=== PATIENT | female | born 1950 | race Caucasian/White ===

== ENCOUNTER → 2017-05-09 | Outpatient (CLI) | payer MEDICARE ==
--- NOTE | 2017-05-09 14:47 | MM ---
Reason for exam: additional evaluation requested from prior study. Last mammogram was performed 1 year ago. History: Patient is postmenopausal, has history of breast cancer at age 65, and history of other cancer. Malignant MG pre op needle loc LT of the left breast, May 28, 2016. Lumpectomy of the left breast, May 28, 2016. Malignant US biopsy breast VAD LT of the left breast, May 21, 2016. Taking estrogen for 15 years. Physical Findings: Nurse Summary: 0.5cm nodule in the right breast at 5 o'clock (nurse celso). MG 3D Diag Mammo W/Cad PAMELA Bilateral CC and MLO view(s) were taken. Prior study comparison: May 21, 2016, left breast MG diagnostic mammo LT wo CAD. May 11, 2016, left breast MG 3d work up w/cad LT. The breast tissue is heterogeneously dense. This may lower the sensitivity of mammography. Finding #1: Architectural distortion in the posterior position of the left breast consistent with known lumpectomy. Finding #2: There are dystrophic calcifications in the left breast at lumpectomy. These results were verbally communicated with the patient and result sheet given to the patient on 05/09/17. ASSESSMENT: Incomplete: need additional imaging evaluation, BI-RAD 0 RECOMMENDATION: Ultrasound of the right breast. (palpable by nurse)
--- NOTE | 2017-05-09 14:48 | USB ---
Reason for exam: additional evaluation requested from abnormal screening. History: Patient is postmenopausal, has history of breast cancer at age 65, and history of other cancer. Malignant MG pre op needle loc LT of the left breast, May 28, 2016. Lumpectomy of the left breast, May 28, 2016. Malignant US biopsy breast VAD LT of the left breast, May 21, 2016. Taking estrogen for 15 years. US Breast Limited RT Right breast ultrasound includes all four quadrants, the retroareolar region and axilla. Finding demonstrates no cystic or solid lesion seen. These results were verbally communicated with the patient and result sheet given to the patient on 05/09/17. ASSESSMENT: Negative, BI-RAD 1 RECOMMENDATION: Follow-up diagnostic mammogram of both breasts in 1 year.
== END | disposition home or self-care (01) ==
LOC: RADMAMWWP 12:46
PROVIDERS: ATTEND Internal Medicine Hematology & Oncology
DX: Z08 Encounter for follow-up examination after completed treatment for malignant neoplasm (principal); R92.8 Other abnormal and inconclusive findings on diagnostic imaging of breast; Z85.3 Personal history of malignant neoplasm of breast
CPT/HCPCS: 76642; G0204; G0279

== ENCOUNTER → 2017-05-10 | Outpatient (CLI) | payer MEDICARE ==
--- NOTE | 2017-05-10 09:29 | XR ---
EXAMINATION TYPE: XR chest 2V DATE OF EXAM: 05/10/2017 COMPARISON: NONE INDICATION: Carcinoma upper outer quadrant left breast TECHNIQUE: Frontal and lateral views of the chest are obtained. FINDINGS: The heart size is normal. The pulmonary vasculature is normal. The lungs are clear. Postsurgical clips are within the left breast. IMPRESSION: 1. No acute pulmonary process.
== END | disposition home or self-care (01) ==
LOC: RADXRMAIN 09:07
PROVIDERS: ATTEND Internal Medicine Hematology & Oncology
DX: C50.412 Malignant neoplasm of upper-outer quadrant of left female breast (principal); I10 Essential (primary) hypertension; K12.31 Oral mucositis (ulcerative) due to antineoplastic therapy; M12.9 Arthropathy, unspecified
CPT/HCPCS: 71020

== ENCOUNTER → 2018-06-02 | Outpatient (CLI) | payer MEDICARE ==
--- NOTE | 2018-06-02 09:54 | XR ---
EXAMINATION TYPE: XR chest 2V DATE OF EXAM: 06/02/2018 COMPARISON: 05/10/2017 HISTORY: Breast cancer. Follow-up exam. TECHNIQUE: Frontal and lateral views of the chest are obtained. FINDINGS: There is a vague nodular density in the left upper lung measuring approximately 1.1 cm. The re is no focal air space opacity, pleural effusion, or pneumothorax seen. The cardiac silhouette siz e is within normal limits. There is an S-shaped scoliotic curvature of the visualized thoracolumbar s pine and mild multilevel degenerative changes. The osseous structures are intact. Postsurgical christina ges of the left breast are noted. IMPRESSION: Vague left upper lung rounded density. CT thorax is recommended to evaluate for underlyi ng pulmonary nodule.
== END ==
LOC: RADXRMAIN 09:26
PROVIDERS: ATTEND Internal Medicine Hematology & Oncology
DX: C50.412 Malignant neoplasm of upper-outer quadrant of left female breast (principal); R91.8 Other nonspecific abnormal finding of lung field
CPT/HCPCS: 71046

== ENCOUNTER → 2018-06-02 | Outpatient (CLI) | payer MEDICARE ==
--- NOTE | 2018-06-02 09:38 | MM ---
Reason for exam: additional evaluation requested from prior study. Last mammogram was performed 1 year and 1 month ago. History: Patient is postmenopausal, has history of breast cancer at age 65, and history of other cancer. Malignant MG pre op needle loc LT of the left breast, May 28, 2016. Lumpectomy of the left breast, May 28, 2016. Malignant US biopsy breast VAD LT of the left breast, May 21, 2016. Taking estrogen for 15 years. Physical Findings: Nurse did not find any significant physical abnormalities on exam. MG 3D Diag Mammo W/Cad PAMELA Bilateral CC and MLO view(s) were taken. Prior study comparison: May 09, 2017, bilateral MG 3d diag mammo w/cad PAMELA. May 21, 2016, left breast MG diagnostic mammo LT wo CAD. The breast tissue is heterogeneously dense. This may lower the sensitivity of mammography. No suspicious abnormality. Post therpy change on the left. These results were verbally communicated with the patient and result sheet given to the patient on 06/02/18. ASSESSMENT: Benign, BI-RAD 2 RECOMMENDATION: Follow-up diagnostic mammogram of both breasts in 1 year.
== END | disposition home or self-care (01) ==
LOC: RADMAMWWP 08:46
PROVIDERS: ATTEND Surgery
DX: Z08 Encounter for follow-up examination after completed treatment for malignant neoplasm (principal); Z85.3 Personal history of malignant neoplasm of breast
CPT/HCPCS: 77066; G0279; 77062

== ENCOUNTER → 2018-06-03 | Outpatient (CLI) | payer MEDICARE ==
--- NOTE | 2018-06-03 11:07 | CT ---
EXAMINATION TYPE: CT chest w con DATE OF EXAM: 06/03/2018 COMPARISON: Chest x-ray 1018 HISTORY: pain CT DLP: 174.1 mGycm Automated exposure control for dose reduction was used. CONTRAST: CT scan of the chest is performed with IV Contrast, patient injected with 100 mL of Isovue 300. FINDINGS: LUNGS: No nodule likely corresponds to the x-ray abnormality. However, there are multiple less than 5 mm pulmonary nodules. 3 mm nodule left lower lobe. 4 mm left lower lobe pleural-based image 35 5 mm nodule right middle lobe image 33 Subpleural 2 mm nodule right upper lobe 2 mm subpleural nodule left lung apex MEDIASTINUM: There are no greater than 1 cm hilar or mediastinal lymph nodes. No pericardial effusi on is seen. OTHER: Gallstone noted. Hypertrophic changes of the vertebral column. Postsurgical change involving the left breast IMPRESSION: 1. There is no nodule that corresponds to the x-ray abnormality. However there are multiple 5 mm or l ess bilateral pulmonary nodules which are too small to characterize. Recommend a follow-up 3-6 month exam to assess for stability.. 2. Cholelithiasis 3. Postoperative change involving the left breast
== END ==
LOC: RADCTMAIN 09:18
PROVIDERS: ATTEND Internal Medicine Hematology & Oncology
DX: C50.412 Malignant neoplasm of upper-outer quadrant of left female breast (principal); R91.8 Other nonspecific abnormal finding of lung field; Z98.890 Other specified postprocedural states; Z91.040 Latex allergy status; Z88.8 Allergy status to other drugs, medicaments and biological substances
CPT/HCPCS: 82565; 84520; 71260; Q9967

== ENCOUNTER → 2018-09-01 | Outpatient (CLI) | payer MEDICARE ==
--- NOTE | 2018-09-01 11:44 | CT ---
EXAMINATION TYPE: CT chest w con DATE OF EXAM: 09/01/2018 COMPARISON: Prior CT chest 06/03/2018 HISTORY: breast Ca CT DLP: 296 mGycm Automated exposure control for dose reduction was used. CONTRAST: CT scan of the chest is performed with IV Contrast, patient injected with 80 mL of Isovue 300. FINDINGS: LUNGS: The lungs are stable, there is no significant change in the subpleural nodules identified. T here is no pleural effusion or pneumothorax seen. The tracheobronchial tree is patent. MEDIASTINUM: There are no greater than 1 cm hilar or mediastinal lymph nodes. No pericardial effusi on is seen. AORTA: No additional significant abnormality is seen. OTHER: Postop changes are again noted to the left breast and axilla are similar to prior exam. Indet erminate subcentimeter hypodensities again noted within the liver. There is small calculus in the dep endent portion of the gallbladder as on prior. IMPRESSION: Stable exam.
== END | disposition home or self-care (01) ==
LOC: RADCTMAIN 10:15
PROVIDERS: ATTEND Internal Medicine Hematology & Oncology
DX: C50.412 Malignant neoplasm of upper-outer quadrant of left female breast (principal); Z91.040 Latex allergy status; Z91.09 Other allergy status, other than to drugs and biological substances
CPT/HCPCS: 82565; 84520; 71260; 36415; Q9967

== ENCOUNTER → 2019-01-27 | Outpatient (CLI) | payer MEDICARE ==
[2019-01-27 07:50] LABS: Appearance,Urine Clear (Clear); Bilirubin,Urine Negative (Negative); Blood,Urine Negative (Negative); Color,Urine Light Yellow; Glucose,Urine (UA) Negative (Negative); Ketones,Urine Negative (Negative); Leukocyte Esterase,Urine Moderate (Negative); Mucus,Urine Rare /hpf; Nitrite,Urine Negative (Negative); PH, Urine 6.5 (5.0-8.0); Protein,Urine Negative (Negative); RBC,Urine <1 /hpf (0-5); Specific Gravity,Urine 1.013 (1.001-1.035); Squamous Epithelial Cell,Urine 7 /hpf (0-4); Urobilinogen,Urine <2.0 mg/dL (<2.0); WBC,Urine 4 /hpf (0-5)
[2019-01-27 07:57] LABS: HCT 40.4 % (34.0-46.0); HGB 13.1 gm/dL (11.4-16.0); MCH 31.6 pg (25.0-35.0); MCHC 32.4 g/dL (31.0-37.0); MCV 97.4 fL (80.0-100.0); Mean Platelet Volume 7.9; Platelet Count 217 k/uL (150-450); RBC 4.15 m/uL (3.80-5.40); RDW 13.1 % (11.5-15.5); WBC 5.7 k/uL (3.8-10.6)
[2019-01-27 10:47] LABS: Albumin 4.4 g/dL (3.80-4.90); Albumin/Globulin Ratio 2.93 (1.60-3.17); Anion Gap 5.9 mmol/L (4.00-12.00); Calcium 9.8 mg/dL (8.7-10.3); Carbon Dioxide 31.1 mmol/L (21.6-31.8); Globulin 1.5 g/dL (1.6-3.3); LDL Cholesterol,Calculated 119.4 mg/dL (0.0-131.0); Potassium 4.2 mmol/L (3.5-5.5); Total Bilirubin 0.7 mg/dL (0.3-1.2); Total Protein 5.9 g/dL (6.2-8.2); VLDL Calculation 15.6 mg/dL (5.00-40.00)
== END ==
LOC: LABWHC1 07:00
PROVIDERS: ATTEND Internal Medicine
DX: E78.5 Hyperlipidemia, unspecified (principal); I10 Essential (primary) hypertension; D05.12 Intraductal carcinoma in situ of left breast; R53.81 Other malaise
CPT/HCPCS: 36415; 80053; 80061; 81001; 84443; 85027

== ENCOUNTER → 2019-03-06 | Outpatient (CLI) | payer MEDICARE ==
--- NOTE | 2019-03-06 13:27 | CT ---
EXAMINATION TYPE: CT chest w con DATE OF EXAM: 03/06/2019 COMPARISON: Chest CTs September 01, 2018 and June 13, 2018 HISTORY: LUNG NODULE, history of breast cancer. CT DLP: 320 mGycm. Automated Exposure Control for Dose Reduction was Utilized. TECHNIQUE: CT scan of the thorax is performed following with IV Contrast, patient injected with 100 mL of Isovue 300. FINDINGS: LUNGS: Scattered small nodules are felt stable. For reference largest groundglass nodule subpleural l evel right lower lobe axial image 33 measures 5 x 4 mm. No new greater than 4 mm nodules are evident. No pleural effusion or pneumothorax. Tracheobronchial tree is patent. MEDIASTINUM: There are no greater than 1 cm hilar or mediastinal lymph nodes. No cardiomegaly or pe ricardial effusion is seen. OTHER: Dependent gallstone in gallbladder is redemonstrated. Slight S-shaped scoliosis. Surgical clip s posterior left breast and axilla from prior breast surgery redemonstrated. IMPRESSION: Stable scattered small nodules favor postinflammatory. No suspicious enlarging or new nod ules are seen to suggest metastatic malignancy.
== END | disposition home or self-care (01) ==
LOC: RADCTMAIN 10:50
PROVIDERS: ATTEND Internal Medicine Hematology & Oncology
DX: R91.1 Solitary pulmonary nodule (principal); C50.412 Malignant neoplasm of upper-outer quadrant of left female breast; Z91.040 Latex allergy status
CPT/HCPCS: 82565; 84520; 71260; 36415; Q9967

== ENCOUNTER → 2019-06-03 | Outpatient (CLI) | payer MEDICARE ==
--- NOTE | 2019-06-03 13:18 | MM ---
Reason for exam: additional evaluation requested from abnormal screening. Last mammogram was performed 1 year ago. History: Patient is postmenopausal, has history of breast cancer at age 65, and history of other cancer. Malignant MG pre op needle loc LT of the left breast, May 28, 2016. Lumpectomy of the left breast, May 28, 2016. Malignant US biopsy breast VAD LT of the left breast, May 21, 2016. Taking estrogen for 15 years. Physical Findings: Nurse did not find any significant physical abnormalities on exam. MG 3D Diag Mammo W/Cad PAMELA Bilateral CC and MLO view(s) were taken. Spot compression CC, spot compression MLO, and LM view(s) were taken of the right breast. Prior study comparison: June 02, 2018, bilateral MG 3d diag mammo w/cad PAMELA. May 09, 2017, bilateral MG 3d diag mammo w/cad PAMELA. The breast tissue is heterogeneously dense. This may lower the sensitivity of mammography. Right superior asymmetry 5.7cm from nipple resolves on additional views. Left post therapy change. Right central asymmetry 3.5-4cm from nipple, resolves on additional views. These results were verbally communicated with the patient and result sheet given to the patient on 06/03/19. ASSESSMENT: Benign, BI-RAD 2 RECOMMENDATION: Follow-up diagnostic mammogram of both breasts in 1 year.
== END | disposition home or self-care (01) ==
LOC: RADMAMWWP 08:43
PROVIDERS: ATTEND Surgery
DX: R92.8 Other abnormal and inconclusive findings on diagnostic imaging of breast (principal)
CPT/HCPCS: 77066; G0279; 77062

== ENCOUNTER → 2020-05-10 | Outpatient (CLI) | payer MEDICARE ==
--- NOTE | 2020-05-10 13:32 | USB ---
Reason for exam: additional evaluation requested from prior study. History: Patient is postmenopausal, has history of breast cancer at age 65, and history of other cancer. Malignant MG pre op needle loc LT of the left breast, May 28, 2016. Lumpectomy of the left breast, May 28, 2016. Malignant US biopsy breast VAD LT of the left breast, May 21, 2016. Chemotherapy, 2016. Radiation therapy of the left breast, 2016. Taking estrogen for 15 years. Physical Findings: Nurse did not find any significant physical abnormalities on exam. US Breast BILAT Right complete breast ultrasound includes all four quadrants, the retroareolar region and axilla. Finding demonstrates no cystic or solid lesion seen. Left complete breast ultrasound includes all four quadrants, the retroareolar region and axilla. Finding demonstrates a scar at 12 o'clock. No other solid or cystic lesion seen to correspond to the palpable areas felt by the clinician. These results were verbally communicated with the patient and result sheet given to the patient on 05/10/20. ASSESSMENT: Probably benign, BI-RAD 3 RECOMMENDATION: Follow-up diagnostic mammogram of both breasts in 1 month. Manage on a clinical basis with regard to any suspicious palpables.
== END | disposition home or self-care (01) ==
LOC: RADUSWWP 09:36
PROVIDERS: ATTEND Internal Medicine Hematology & Oncology
DX: N60.02 Solitary cyst of left breast (principal); N60.01 Solitary cyst of right breast; Z85.3 Personal history of malignant neoplasm of breast; Z98.890 Other specified postprocedural states

== ENCOUNTER → 2020-06-08 | Outpatient (CLI) | payer MEDICARE ==
--- NOTE | 2020-06-08 11:54 | MM ---
Reason for exam: additional evaluation requested from prior study. Last mammogram was performed 1 year ago. History: Patient is postmenopausal, has history of breast cancer at age 65, and history of other cancer. Malignant MG pre op needle loc LT of the left breast, May 28, 2016. Lumpectomy of the left breast, May 28, 2016. Malignant US biopsy breast VAD LT of the left breast, May 21, 2016. Chemotherapy, 2016. Radiation therapy of the left breast, 2016. Taking estrogen for 15 years. Physical Findings: Nurse did not find any significant physical abnormalities on exam. MG 3D Diag Mammo W/Cad PAMELA Bilateral CC and MLO view(s) were taken. Prior study comparison: June 03, 2019, bilateral MG 3d diag mammo w/cad PAMELA. June 02, 2018, bilateral MG 3d diag mammo w/cad PAMELA. The breast tissue is heterogeneously dense. This may lower the sensitivity of mammography. Unchanged left upper outer quadrant lumpectomy change and clips. Benign appearing calcifications in the left breast. No significant new findings when compared with previous films. These results were verbally communicated with the patient and result sheet given to the patient on 06/08/20. ASSESSMENT: Benign, BI-RAD 2 RECOMMENDATION: Routine screening mammogram of both breasts in 1 year.
== END | disposition home or self-care (01) ==
LOC: RADMAMWWP 09:55
PROVIDERS: ATTEND Internal Medicine Hematology & Oncology
DX: N60.02 Solitary cyst of left breast (principal); N60.01 Solitary cyst of right breast; Z85.3 Personal history of malignant neoplasm of breast
CPT/HCPCS: 77066; G0279; 77062

== ENCOUNTER → 2021-05-15 | Outpatient (CLI) | payer MEDICARE ==
--- NOTE | 2021-05-15 11:12 | MM ---
Reason for exam: additional evaluation requested from prior study. Last mammogram was performed 11 months ago. History: Patient is postmenopausal, has history of breast cancer at age 65, and history of other cancer. Malignant MG pre op needle loc LT of the left breast, May 28, 2016. Lumpectomy of the left breast, May 28, 2016. Malignant US biopsy breast VAD LT of the left breast, May 21, 2016. Chemotherapy, 2016. Radiation therapy of the left breast, 2016. Took hormonal contraceptives for 2 months. Took estrogen for 15 years. Physical Findings: Nurse did not find any significant physical abnormalities on exam. MG 3D Diag Mammo W/Cad PAMELA Bilateral CC and MLO view(s) were taken. Prior study comparison: June 08, 2020, bilateral MG 3d diag mammo w/cad PAMELA. June 03, 2019, bilateral MG 3d diag mammo w/cad PAMELA. The breast tissue is heterogeneously dense. This may lower the sensitivity of mammography. Stable benign calcifications. Stable post lumpectomy changes left breast. These results were verbally communicated with the patient and result sheet given to the patient on 05/15/21. ASSESSMENT: Benign, BI-RAD 2 RECOMMENDATION: Follow-up diagnostic mammogram of both breasts in 1 year.
== END | disposition home or self-care (01) ==
LOC: RADMAMWWP 10:09
PROVIDERS: ATTEND Surgery
DX: R92.1 Mammographic calcification found on diagnostic imaging of breast (principal); Z78.0 Asymptomatic menopausal state; Z85.3 Personal history of malignant neoplasm of breast
CPT/HCPCS: 77066; G0279; 77062

== ENCOUNTER → 2022-05-17 | Outpatient (CLI) | payer MEDICARE ==
--- NOTE | 2022-05-18 08:13 | MM ---
Reason for Exam: Screening (asymptomatic). Last screening mammogram was performed 12 month(s) ago. Patient History: Menarche at age 10. First Full-Term at age 25. Left ovary removed at age 41. Right ovary removed at age 41. Hysterectomy at age 41. Postmenopausal. Other cancer. Breast cancer, left, age 65. Patient used Estrogen for 15 years. Hormonal Contraceptives for 2 months. 05/28/2016, Lumpectomy on the Left side. 05/28/2016, Malignant Core Biopsy on the left side. 05/21/2016, Malignant Core Biopsy on the left side. 2015, Chemotherapy. 2015, Radiation Therapy on the left side. Prior Study Comparison: 06/03/2019 Bilateral Diagnostic Mammogram, [facility]. 06/08/2020 Bilateral Diagnostic Mammogram, [facility]. 05/15/2021 Bilateral Diagnostic Mammogram, [facility]. Tissue Density: The breast tissue is heterogeneously dense. This may lower the sensitivity of mammography. Findings: Analyzed By CAD. Stable benign indications. Stable postlumpectomy changes of the left breast. There is no suspicious group of microcalcifications or new suspicious mass in either breast. No significant change from prior exams. Overall Assessment: Benign, BI-RAD 2 Management: Screening Mammogram of both breasts in 1 year. A clinical breast exam by your physician is recommended on an annual basis and results should be correlated with mammographic findings. Electronically signed and approved by: Max Maxwell D.O.
== END | disposition home or self-care (01) ==
LOC: RADMAMWWP 10:50
PROVIDERS: ATTEND Internal Medicine Hematology & Oncology
DX: Z12.31 Encounter for screening mammogram for malignant neoplasm of breast (principal)
CPT/HCPCS: 77063; 77067

== ENCOUNTER → 2024-03-23 | Outpatient (CLI) | payer MEDICARE ==
--- NOTE | 2024-03-23 10:41 | BD ---
EXAMINATION TYPE: Axial Bone Density DATE OF EXAM: 03/23/2024 CLINICAL HISTORY: 73 years old Female. ICD-10 CODE: C50.412 Breast cancer Height: 59 Weight: 108.7 FRAX RISK QUESTIONS: Alcohol (3 or more units per day): no Family History (Parent hip fracture): no Glucocorticoids (More than 3mos): no (Ex: prednisone, prednisolone, methylprednisolone, dexamethasone, and hydrocortisone). History of Fracture in Adulthood: no Secondary Osteoporosis: 1. Type 1 Diabetes: no 2. Hyperthyroidism: no 3. Menopause before 45: no 4. Malnutrition: no 5. Chronic liver disease: no Rheumatoid Arthritis: no Current Tobacco Use: no RISK FACTORS HISTORY OF: Surgery to Spine/Hip(right/left)/Wrist (right/left): no MEDICATIONS: EXAM MEASUREMENTS: Bone mineral densitometry was performed using the [employer] System. Bone mineral density as measured about the Lumbar spine is: ----- L1-L4(G/cm2): 1.025 T Score Values are as follows: ----- L1: -2.4 ----- L2: -2.0 ----- L3: -0.8 ----- L4: -0.3 ----- L1-L4: -1.3 Z Score Values are as follows: ----- L1: -0.1 ----- L2: 0.2 ----- L3: 1.5 ----- L4: 2.0 ----- L1-L4: 1.0 Bone mineral density has: decreased -4.2 % since study of: 03.15.2015 Bone mineral density about the R hip (g/cm2): 0.890 Bone mineral density about the L hip (g/cm2): .0817 T Score values are as follows: -----R Neck: -1.8 -----L Neck: -2.1 -----R Total: -0.9 -----L Total: -1.5 Z Score values are as follows: -----R Neck: 0.5 -----L Neck: 0.2 -----R Total: 1.2 -----L Total: 0.6 Bone mineral density has: decreased -5.0 % since study of: 03.15.2015 FRAX%s: The graph provided illustrates a 12.9% chance for a major osteoporotic fx and a 3.6% chance f or the hips probability for fx in 10 years time. IMPRESSION: Osteopenia (T Score between -2.5 and -1). There is slightly increased risk of fracture and the patient may be considered for treatment. Re-Screen 2-5 years. NOTE: T-SCORE=SD OF THE YOUNG ADULT MEAN.
== END | disposition home or self-care (01) ==
LOC: RADBDWWP 08:27
PROVIDERS: ATTEND Internal Medicine Hematology & Oncology
DX: C50.412 Malignant neoplasm of upper-outer quadrant of left female breast (principal); M85.89 Other specified disorders of bone density and structure, multiple sites; I10 Essential (primary) hypertension; K12.31 Oral mucositis (ulcerative) due to antineoplastic therapy; M12.9 Arthropathy, unspecified; Z71.89 Other specified counseling; Z12.31 Encounter for screening mammogram for malignant neoplasm of breast
CPT/HCPCS: 77080

== ENCOUNTER 2024-04-24 11:28 | Day surgery (SDC) | payer MEDICARE ==
[2024-04-22 15:58] VITALS: BMI 21.9
[2024-04-24] MEDS: IV FLUID CONTINUATION 1,000 ML IV ONE (12:18)
[2024-04-24] MEDS: LACTATED RINGERS 1,000 ML IV SCH (12:20)
[2024-04-24 12:28] VITALS: TEMP 96.9
[2024-04-24] MEDS ORDERED: GLYCOPYRROLATE 0.2 MG/ML 2 ML VIAL ONE (13:29)
[2024-04-24] MEDS ORDERED: PROPOFOL 10 MG/ML 20 ML VIAL IV ONE (13:29)
--- NOTE | 2024-04-24 14:04 | P.PCN ---
Date of Procedure: 04/24/24 Procedure(s) Performed: BRIEF HISTORY: Patient is a 73-year-old pleasant white female scheduled for an elective colonoscopy as a part of screening for colon cancer. PROCEDURE PERFORMED: Colonoscopy. PREOPERATIVE DIAGNOSIS: Screening for colon cancer. IV sedation per Anesthesia. PROCEDURE: After informed consent was obtained, the patient, was brought into the endoscopy unit. IV sedation was administered by Anesthesia under continuous monitoring. Digital rectal examination was normal. Initially the Olympus CF-160 flexible video colonoscope was then inserted in the rectum, gradually advanced into the transverse colon and further advancement was not possible. The scope was removed. Pediatric colonoscopy was then introduced into the rectum and gradually advanced into the cecum without any difficulty. Careful examination was performed as the scope was gradually being withdrawn. Ileocecal valve and the appendiceal orifice were visualized and appeared normal. Prep was good.. Mucosa of the cecum, ascending colon, transverse colon, descending colon, sigmoid colon, and rectum appeared normal. Scattered sigmoid diverticulosis retroflexion was performed in the rectum and no lesions were seen. The patient tolerated the procedure well. IMPRESSION: Normal-appearing colon from rectum to cecum . Scattered sigmoid diverticulosis. RECOMMENDATIONS: Findings of this examination were discussed with the patient as well as her family. She was advised to be on high-fiber diet and take fiber supplements on a regular basis. Recommended repeat colonoscopy in 10 years based on her overall medical condition.
[2024-04-24 14:15] VITALS: RESP 16
[2024-04-24 14:53] VITALS: BP 129/81; PULSE 77
== END 2024-04-24 15:09 | disposition home or self-care (01) ==
LOC: ORWHC2ENDO 11:28
PROVIDERS: ATTEND Internal Medicine Gastroenterology
DX: Z12.11 Encounter for screening for malignant neoplasm of colon (principal); K57.30 Diverticulosis of large intestine without perforation or abscess without bleeding; Z87.19 Personal history of other diseases of the digestive system; I10 Essential (primary) hypertension; J45.909 Unspecified asthma, uncomplicated; K21.9 Gastro-esophageal reflux disease without esophagitis; Z88.9 Allergy status to unspecified drugs, medicaments and biological substances; Z79.51 Long term (current) use of inhaled steroids; Z79.899 Other long term (current) drug therapy

== ENCOUNTER → 2024-05-21 | Outpatient (CLI) | payer MEDICARE ==
--- NOTE | 2024-05-24 12:30 | MM ---
Reason for Exam: Screening (asymptomatic). Last screening mammogram was performed 12 month(s) ago. Patient History: Menarche at age 10. First Full-Term at age 25. Left ovary removed at age 41. Right ovary removed at age 41. Hysterectomy at age 41. Postmenopausal. Patient has history of breast feeding. Other cancer. Breast cancer, left, age 65. Patient used Estrogen for 15 years. Hormonal Contraceptives for 2 months. 05/28/2016, Lumpectomy on the Left side. 05/28/2016, Malignant Core Biopsy on the left side. 05/21/2016, Malignant Core Biopsy on the left side. 2016, Chemotherapy. 2015, Radiation Therapy on the left side. Prior Study Comparison: 05/15/2021 Bilateral Diagnostic Mammogram, [facility]. 05/17/2022 Bilateral MG 3D screening mammo w/cad, [facility]. 05/20/2023 Bilateral MG 3D screening mammo w/cad, [facility]. Tissue Density: The breasts are heterogeneously dense, which may obscure small masses. Findings: Analyzed By CAD. The pattern is stable. Postsurgical changes are within the left breast. Benign vascular calcifications present bilaterally. No suspicious groups of microcalcifications, spiculated or lobular masses, architectural distortion or other secondary signs of malignancy are mammographically apparent. Overall Assessment: Benign, BI-RAD 2 Management: Screening Mammogram of both breasts in 1 year. A negative mammogram report should not preclude additional follow up of suspicious palpable abnormalities. Patient should continue monthly self breast exam. A clinical breast exam by your physician is recommended on an annual basis and results should be correlated with mammographic findings. Note on Shanta scores and lifetime risk: 1. A Shanta score greater than 3% is considered moderate risk. If this is the case, consider specialist referral to assess eligibility for a risk reducing agent. 2. If overall lifetime risk for the development of breast cancer is 20% or higher, the patient may qualify for future screening with alternating mammogram and breast MRI. [facility], , 05/24/2024 12:27 PM. Electronically signed and approved by: Bob Ku D.O. Radiologis
== END | disposition home or self-care (01) ==
LOC: RADMAMWWP 13:04
PROVIDERS: ATTEND Internal Medicine Hematology & Oncology
DX: C50.412 Malignant neoplasm of upper-outer quadrant of left female breast
CPT/HCPCS: 77063; 77067